=== PATIENT | female | born 1970 | race Caucasian/White ===

== ENCOUNTER → 2020-12-09 | Outpatient (CLI) | payer BC ==
[~2020-12-09] MED LIST: ADIPEX-P37.5 MG PO; ALEVE PO; COLACE 100MG C100 MG PO; DESYREL 50 MG T50 MG PO; DICLOFENAC SODI75 MG PO; EFFEXOR XR150 MG PO; IBUPROFEN600 MG PO; IRON325 M1 PO; NORCO 5-325 TA1 EACH PO; PERCOCET 5/325 T1 EA PO; PRILOSEC PO; TYLENOL PO
== END ==
LOC: KOH-I 13:00
DX: M54.5 Low back pain (principal); M51.36 Other intervertebral disc degeneration, lumbar region; M48.061 Spinal stenosis, lumbar region without neurogenic claudication; M47.817 Spondylosis without myelopathy or radiculopathy, lumbosacral region
CPT/HCPCS: 72148